=== PATIENT | female | born 1980 | race Two or more races ===

== ENCOUNTER 2023-06-20 13:08 | Emergency (ER) | payer BC ==
[~2023-06-20] VITALS: Ht 167.6 cm; Wt 67.1 kg
[2023-06-20] MEDS ORDERED: IV NS 0.9% 1,000 ML BAG IV ONE (13:30)
[2023-06-20 13:52] LABS: BASOPHILS # (AUTO) 0.1 K/uL (0.0-0.2); BASOPHILS % (AUTO) 0.8 % (0.0-2.0); EOSINOPHILS # (AUTO) 0.1 K/uL (0.0-0.7); EOSINOPHILS % (AUTO) 1.4 % (0.0-6.0); HEMATOCRIT 39 % (33-45); HEMOGLOBIN 12.7 g/dL (11.5-14.8); LYMPHOCYTES # (AUTO) 1.2 K/uL (0.8-4.8); LYMPHOCYTES % (AUTO) 16.1 % (20.0-44.0); MEAN CORPUSCULAR HEMOGLOBIN 27 PG (26.0-33.0); MEAN CORPUSCULAR HGB CONC 33 g/dl (31.0-36.0); MEAN CORPUSCULAR VOLUME 82 fL (82-100); MONOCYTES # (AUTO) 0.5 K/uL (0.1-1.30); MONOCYTES % (AUTO) 7.2 % (2.0-12.0); NEUTROPHILS # (AUTO) 5.7 K/uL (1.8-8.9); NEUTROPHILS % (AUTO) 74.5 % (43.0-81.0); PLATELET COUNT (AUTO) 238 K/uL (150-450); RED BLOOD CELL COUNT(AUTO) 4.68 MIL/uL (4.0-5.2); RED CELL DISTRIBUTION WIDTH 15.1 % (11.5-15.0); WHITE BLOOD COUNT (AUTO) 7.6 K/uL (4.3-11.0)
[2023-06-20 14:06] LABS: CALCIUM, SERUM 9.4 mg/dL (8.5-10.1); CREATININE 0.7 mg/dL (0.6-1.3); POTASSIUM 3.8 mmol/L (3.5-5.1)
[2023-06-20 14:11] LABS: ALBUMIN 3.6 g/dL (3.4-5.0); BILIRUBIN,DIRECT 0.2 mg/dL (0.0-0.2); BILIRUBIN,TOTAL 0.7 mg/dL (0.2-1.0); TOTAL PROTEIN, SERUM 7.7 g/dL (6.4-8.2)
[2023-06-20] MEDS ORDERED: diphenhydrAMINE HCL 50 MG/ML VIAL ONE (14:19)
[2023-06-20] MEDS ORDERED: MORPHINE SULFATE INJ 4 MG/ML DISP.SYRIN ONE ×2 (14:19→16:49)
[2023-06-20] MEDS ORDERED: IOHEXOL-300 100 ML VIAL IV ONE (14:29)
[2023-06-20] MEDS ORDERED: IV NS 0.9% 250 ML IV ONE (14:29)
[2023-06-20] MEDS ORDERED: diphenhydrAMINE HCL 50 MG/ML VIAL IV ONE (14:30)
[2023-06-20] MEDS ORDERED: MORPHINE SULFATE INJ 2 MG/ML DISP.SYRIN IV ONE ×2 (14:30→17:00)
[2023-06-20 14:40] LABS: LACTIC ACID 0.7 mmol/L (0.4-2.0)
[2023-06-20] MEDS ORDERED: KETOROLAC TROMETHAMINE INJ 30 MG/ML VIAL ONE (16:49)
[2023-06-20] MEDS ORDERED: METOCLOPRAMIDE HCL 10 MG/2 ML VIAL ONE (16:49)
[2023-06-20] MEDS ORDERED: KETOROLAC TROMETHAMINE INJ 30 MG/ML VIAL IV ONE (17:00)
[2023-06-20] MEDS ORDERED: METOCLOPRAMIDE HCL 10 MG/2 ML VIAL IV ONE (17:00)
[2023-06-20 20:39] VITALS: BP 111/78; TEMP 98.4; O2SAT 98
== END 2023-06-20 20:39 | disposition home or self-care (01) ==
LOC: ER 13:17
DX: K56.7 Ileus, unspecified (principal); R10.84 Generalized abdominal pain; Z91.013 Allergy to seafood
CPT/HCPCS: 99285; 74177; 96374; 96375; 71045; 96361; 93005; 96376; 85025; 80048; 87040 ×2; 83605; 83690; 80076; J1200; J2270 ×2; J2765; J1885; J7030; J7050; Q9967